=== PATIENT | male | born 1950 | race Caucasian/White ===

== ENCOUNTER → 2020-10-18 11:58 | Outpatient (CLI) | payer MEDICARE, SELFPAY ==
[2020-10-18 19:47] LABS: Add Manual Diff / Slide Review NO; Basophils Absolute Auto 0 /uL (0-100); Basophils Percent Auto 0.5 % (0-2); Eosinophils Absolute Auto 100 /uL (0-450); Eosinophils Percent Auto 2.1 % (2-4); Hematocrit 38.7 % (41-53); Hemoglobin 13.3 g/dL (13.5-17.5); Lymphocytes Absolute Auto 1100 /uL (1100-4500); Lymphocytes Percent Auto 21.2 % (25-40); Mean Corpuscular HGB Conc 34.5 % (30-36); Mean Corpuscular Volume 87.1 fL (80-100); Monocytes Absolute Auto 400 /uL (0-900); Monocytes Percent Auto 7.7 % (3-14); Neutrophils Absolute Auto 3400 /uL (1500-7000); Neutrophils Percent Auto 68.5 % (50-75); Platelet Count 131 X10^3/uL (150-400); Red Blood Cell Count 4.45 X10^6/uL (4.5-5.9); Red Cell Distribution Width 12.6 % (11.6-14.8)
[2020-10-18 19:54] LABS: Alanine Aminotransferase 21 IU/L (<50); Albumin 3.9 g/dL (3.5-5.0); Albumin Globulin Ratio 1.7 (1.0-2.8); Alkaline Phosphatase 48 U/L (38-126); Aspartate Aminotransferase 17 IU/L (17-59); Blood Urea Nitrogen 22 mg/dL (9-20); Calcium 9.2 mg/dL (8.4-10.2); Carbon Dioxide 29 mmol/L (22-32); Chloride 104 mmol/L (98-107); Cholesterol 92 mg/dL (140-199); Estimated Glomerular Filt Rate > 60.0 mL/min (>60); Globulin 2.3 g/dL (1.7-4.1); Glucose 114 mg/dL (80-110); HDL Cholesterol 36 mg/dL (40-60); HEMOLYSIS 16 (0-50); LDL Cholesterol Calculated 45 mg/dL (<100); Potassium 3.1 mmol/L (3.4-5.1); Sodium 140 mmol/L (137-145); Total Protein 6.2 g/dL (6.3-8.2); Triglycerides 53 mg/dL (35-150)
== END ==
PROVIDERS: PCP Family Medicine; Referring Provider Family Medicine; Visit Provider Family Medicine
DX: I10 Essential (primary) hypertension (principal); I51.7 Cardiomegaly; R01.1 Cardiac murmur, unspecified; R73.9 Hyperglycemia, unspecified
CPT/HCPCS: 80053; 80061; 83036; 85025

== ENCOUNTER → 2021-01-29 08:03 | Outpatient (CLI) | payer MEDICARE, SELFPAY ==
[2021-01-29 19:15] LABS: BUN Creatinine Ratio 26.3 (6-22); Blood Urea Nitrogen 21 mg/dL (9-20); Calcium 9.9 mg/dL (8.4-10.2); Carbon Dioxide 34 mmol/L (22-32); Chloride 103 mmol/L (98-107); Estimated Glomerular Filt Rate > 60.0 mL/min (>60); Glucose 120 mg/dL (80-110); HEMOLYSIS < 15 (0-50); Potassium 3.6 mmol/L (3.4-5.1); Sodium 142 mmol/L (137-145)
[2021-01-29 19:16] LABS: Hemoglobin A1C% w Est Avg Glu 6.3 % (4.0-6.0)
== END ==
PROVIDERS: PCP Family Medicine; Visit Provider Family Medicine
DX: E11.9 Type 2 diabetes mellitus without complications (principal); E87.6 Hypokalemia
CPT/HCPCS: 80048; 83036

== ENCOUNTER → 2021-04-29 10:35 | Outpatient (CLI) | payer MEDICARE, SELFPAY ==
[2021-04-29 19:43] LABS: Add Manual Diff / Slide Review NO; Basophils Absolute Auto 0 /uL (0-100); Basophils Percent Auto 0.4 % (0-2); Eosinophils Absolute Auto 200 /uL (0-450); Hematocrit 40.3 % (41-53); Hemoglobin 13.7 g/dL (13.5-17.5); Lymphocytes Absolute Auto 1000 /uL (1100-4500); Lymphocytes Percent Auto 21.3 % (25-40); Mean Corpuscular HGB Conc 34.1 % (30-36); Mean Corpuscular Hemoglobin 29.8 PG (26-34); Mean Corpuscular Volume 87.6 fL (80-100); Monocytes Absolute Auto 400 /uL (0-900); Monocytes Percent Auto 7.1 % (3-14); Neutrophils Absolute Auto 3300 /uL (1500-7000); Neutrophils Percent Auto 67.2 % (50-75); Platelet Count 145 X10^3/uL (150-400); Red Blood Cell Count 4.61 X10^6/uL (4.5-5.9); White Blood Cell Count 4.9 X10^3/uL (4.5-11.0)
[2021-04-29 19:48] LABS: Hemoglobin A1C% w Est Avg Glu 6.2 % (4.0-6.0)
[2021-04-29 19:51] LABS: Alanine Aminotransferase 20 IU/L (<50); Albumin 4.1 g/dL (3.5-5.0); Albumin Globulin Ratio 1.6 (1.0-2.8); Alkaline Phosphatase 46 U/L (38-126); Aspartate Aminotransferase 16 IU/L (17-59); BUN Creatinine Ratio 28.1 (6-22); Blood Urea Nitrogen 25 mg/dL (9-20); Calcium 9.7 mg/dL (8.4-10.2); Carbon Dioxide 35 mmol/L (22-32); Chloride 102 mmol/L (98-107); Cholesterol 108 mg/dL (140-199); Estimated Glomerular Filt Rate > 60.0 mL/min (>60); Globulin 2.6 g/dL (1.7-4.1); Glucose 116 mg/dL (80-110); HDL Cholesterol 39 mg/dL (40-60); HEMOLYSIS < 15 (0-50); LDL Cholesterol Calculated 55 mg/dL (<100); Potassium 3.7 mmol/L (3.4-5.1); Sodium 140 mmol/L (137-145); Total Protein 6.7 g/dL (6.3-8.2); Triglycerides 71 mg/dL (35-150)
== END ==
PROVIDERS: PCP Family Medicine; Visit Provider Physician Assistant
DX: E11.9 Type 2 diabetes mellitus without complications (principal); E78.5 Hyperlipidemia, unspecified; E87.6 Hypokalemia; I10 Essential (primary) hypertension
CPT/HCPCS: 80053; 80061; 83036; 85025

== ENCOUNTER → 2021-05-13 10:52 | Outpatient (CLI) | payer MEDICARE, SELFPAY ==
[2021-05-13 18:48] LABS: Prostate Specific Antigen Scrn 6.13 ng/mL (0.1-4.0)
== END ==
PROVIDERS: PCP Family Medicine; Visit Provider Physician Assistant
DX: Z12.5 Encounter for screening for malignant neoplasm of prostate (principal); R35.1 Nocturia
CPT/HCPCS: G0103

== ENCOUNTER → 2021-07-22 11:27 | Outpatient (CLI) | payer MEDICARE, SELFPAY ==
[2021-07-24 10:35] LABS: PSA Free % 24.1 % (.); PSA, Total 5.4 ng/mL (0.0-4.0)
== END ==
PROVIDERS: PCP Physician Assistant; Visit Provider Urology
DX: R97.20 Elevated prostate specific antigen [PSA] (principal)
CPT/HCPCS: 84153; 84154

== ENCOUNTER → 2021-08-27 14:43 | Outpatient (CLI) | payer MEDICARE, SELFPAY ==
--- NOTE | 2021-08-27 | DI.ECHO.S_ITS ---
[place] [facility]---------+ [facility] +---------+ : : [address] : [address] : : : : [id number] : : : : Phone: [phone]---------+ Echocardiogram Report + + :Name: SHAHAB JARAMILLO Study Date: 08/27/2021 Height: 70 in : :[facility] ReadingLocation: Weight: 190 lb : : Gender: Male BSA: 2.0 m2 : :: 1950 Age: 70 yrs BP: 176/75 mmHg: :Reason For Study: Aortic, Ascending Aneurysm : :Ordering Physician: SAMARA, : :CONCHITA Performed By: Noman Bess : :Referring: CONCHITA MEJIA : + + Interpretation Summary 1) Normal left ventricular size and systolic function (EF 55-60%). 2) Normal right ventricular size and function. 3) Moderate biatrial enlargement. 4) There is moderate aortic regurgitation. 5) The aortic root is severely dilated at 5.5cm. 6) Significant hypertension present during the study (BP 176/75mmHg). 7) Compared to the Echo done 10/20/2018, aortic roor enlargement has increased from 4.8cm to 5.5cm on this study. Procedure: A two-dimensional transthoracic echocardiogram with color flow and Doppler was performed. The study quality was technically adequate. Comparison is made with the echocardiogram of 10/20/2018. Left Ventricle: The left ventricle is normal in size. Left ventricular wall thickness is at the upper limits of normal. Left ventricular systolic function is normal. The ejection fraction is estimated to be 55-60%. There are no focal wall motion abnormalities. Diastolic function could not be accurately assessed due to unobtainable data. Right Ventricle: The right ventricle is normal in size and function. Atria: Both atria are moderately dilated. The interatrial septum grossly appears intact with no obvious evidence for an atrial septal defect. Mitral Valve: There is mild mitral annular calcification. There is mild mitral regurgitation. Aortic Valve: The aortic valve is normal in structure and function. There is no aortic valve stenosis. There is moderate aortic regurgitation. Tricuspid Valve: The tricuspid valve is normal in structure and function. There is trace tricuspid regurgitation. Pulmonary artery pressures cannot be estimated because of the lack of a measurable TR jet velocity. Pulmonic Valve: The pulmonic valve is normal in structure and function. There is no pulmonic valvular regurgitation. Great Vessels: The aortic root is severely dilated. The ascending aorta is moderately enlarged. The IVC is of normal diameter and collapses greater than 50% with a sniff. This suggests a low right atrial pressure of 3 mm Hg. Pericardium/ Pleura There is no pericardial effusion. There is no pleural effusion. MMode/2D Measurements & Calculations LVIDd: 5.5 cm LVOT diam: 2.2 cm LVIDs: 3.5 cm Ao root diam: 5.5 cm FS: 37.2 % asc Aorta Diam: 4.4 cm IVSd: 1.1 cm LVPWd: 1.1 cm LV patel. diameter/BSA (cm/m^2): 2.7 LV sys. diameter/BSA (cm/m^2): 1.7 LA A2 area: 25.3 cm2 RA long axis: 6.0 cm LA A4 area: 23.5 cm2 RA area: 24.0 cm2 LA length (vol): 6.1 cm RA vol: 82.0 ml LA vol: 82.8 ml RA : 40.1 ml/m2 LA vol index: 40.5 ml/m2 TAPSE: 3.1 cm Doppler Measurements & Calculations Ao V2 max: 200.4 cm/sec LVOT Max Janak: 181.8 cm/sec Ao V2 mean: 129.9 cm/sec LV V1 max P.2 mmHg Ao max P.1 mmHg LV V1 VTI: 41.8 cm Ao mean P.9 mmHg WOO(I,D): 3.5 cm2 Ao V2 VTI: 47.2 cm WOO(V,D): 3.6 cm2 sev ratio: 0.89 WOO indexed to BSA (cm^2/m^2): 1.7 AI P1/2t: 543.8 msec AI dec slope: 199.7 cm/sec2 MV E max janak: 84.7 cm/sec SV(LVOT): 165.6 ml MV A max janak: 85.9 cm/sec MV E/A: 0.99 Med Peak E' Janak: 5.5 cm/sec E/E' med: 15.4 Lat Peak E' Janak: 8.4 cm/sec E/E' lat: 10.1 E/e' average: 12.8 MV dec time: 0.22 sec Reading Physician:12:49 PM
== END ==
PROVIDERS: PCP Physician Assistant; Referring Provider Internal Medicine Cardiovascular Disease; Visit Provider Internal Medicine Cardiovascular Disease
DX: I08.0 Rheumatic disorders of both mitral and aortic valves (principal); I77.810 Thoracic aortic ectasia; I77.89 Other specified disorders of arteries and arterioles
CPT/HCPCS: 93306

== ENCOUNTER → 2021-09-03 13:02 | Outpatient (CLI) | payer MEDICARE, SELFPAY ==
[2021-09-05 05:14] LABS: PSA Free % 27.4 % (.); PSA, Total 5.8 ng/mL (0.0-4.0)
== END ==
PROVIDERS: PCP Physician Assistant; Visit Provider Urology
DX: R97.20 Elevated prostate specific antigen [PSA] (principal)
CPT/HCPCS: 84153; 84154

== ENCOUNTER → 2021-10-30 11:18 | Outpatient (CLI) | payer MEDICARE, SELFPAY ==
[2021-10-30 13:05] LABS: Add Manual Diff / Slide Review NO; Basophils Absolute Auto 0 /uL (0-100); Basophils Percent Auto 0.8 % (0-2); Eosinophils Absolute Auto 100 /uL (0-450); Eosinophils Percent Auto 2.4 % (2-4); Hematocrit 39.4 % (41-53); Hemoglobin 13.8 g/dL (13.5-17.5); Lymphocytes Absolute Auto 1100 /uL (1100-4500); Lymphocytes Percent Auto 19.6 % (25-40); Mean Corpuscular Hemoglobin 30.4 PG (26-34); Mean Corpuscular Volume 86.7 fL (80-100); Monocytes Absolute Auto 300 /uL (0-900); Monocytes Percent Auto 5.7 % (3-14); Neutrophils Absolute Auto 4000 /uL (1500-7000); Neutrophils Percent Auto 71.5 % (50-75); Platelet Count 126 X10^3/uL (150-400); Red Blood Cell Count 4.55 X10^6/uL (4.5-5.9); Red Cell Distribution Width 12.8 % (11.6-14.8); White Blood Cell Count 5.5 X10^3/uL (4.5-11.0)
[2021-10-30 13:34] LABS: BUN Creatinine Ratio 22.1 (6-22); Blood Urea Nitrogen 17 mg/dL (9-20); Calcium 9.6 mg/dL (8.4-10.2); Carbon Dioxide 30 mmol/L (22-32); Chloride 102 mmol/L (98-107); Cholesterol 105 mg/dL (140-199); Estimated Glomerular Filt Rate > 60 mL/min (>60); Glucose 113 mg/dL (80-110); HDL Cholesterol 46 mg/dL (40-60); HEMOLYSIS < 15 (0-50); LDL Cholesterol Calculated 47 mg/dL (<100); Potassium 3.8 mmol/L (3.4-5.1); Sodium 140 mmol/L (137-145); Triglycerides 62 mg/dL (35-150)
== END ==
PROVIDERS: PCP Physician Assistant; Referring Provider Internal Medicine Cardiovascular Disease; Visit Provider Internal Medicine Cardiovascular Disease
DX: E78.5 Hyperlipidemia, unspecified (principal); I10 Essential (primary) hypertension
CPT/HCPCS: 36415; 80048; 80061; 85025

== ENCOUNTER → 2021-11-19 13:59 | Outpatient (CLI) | payer MEDICARE, SELFPAY ==
[2021-11-19 20:26] LABS: Hemoglobin A1C% w Est Avg Glu 6.4 % (4.0-6.0)
[2021-11-19 20:37] LABS: NT-proBNP (BNP-Adult 18+) 162 pg/mL (<125)
== END ==
PROVIDERS: PCP Physician Assistant; Visit Provider Physician Assistant
DX: M79.89 Other specified soft tissue disorders (principal)
CPT/HCPCS: 83036; 83880

== ENCOUNTER → 2021-11-27 11:55 | Outpatient (CLI) | payer MEDICARE, SELFPAY ==
--- NOTE | 2021-11-27 11:57 | DI.US.S_ITS ---
PROCEDURE: US PERIPH VENOUS LOW EXTREM BI INDICATIONS: intermittent leg swelling TECHNIQUE: Real-time imaging, as well as color and pulse Doppler interrogation, were performed of the deep veins of both legs from the inguinal ligament to the popliteal fossa. COMPARISON: None. FINDINGS: Right: The common femoral, femoral and popliteal veins are normally compressible, and free of intraluminal thrombus. Color and pulse Doppler demonstrate normal phasic intravascular flow. There is normal augmentation response to distal compression maneuver. Left: The common femoral, femoral and popliteal veins are normally compressible, and free of intraluminal thrombus. Color and pulse Doppler demonstrate normal phasic intravascular flow. There is normal augmentation response to distal compression maneuver. The femoral veins are noted to be small in size, with slow flow. The calf veins are not well seen. IMPRESSION: Limited study demonstrating no findings of deep venous thrombosis. Dictated by: Julio Goel M.D. on 11/27/2021 at 13:22 Approved by: Julio Goel M.D. on 11/27/2021 at 13:22
--- NOTE | 2021-11-27 11:57 | DI.CT.S_ITS ---
PROCEDURE: CT ANGIO CHEST INDICATIONS: ASCENDING AORTIC DILALATION TECHNIQUE: After the administration of intravenous contrast, 2.5 mm thick sections acquired from the lung apices to the posterior lung bases. Maximum intensity projection (MIP) oblique sagittal reformats were then acquired parallel to the aortic arch. For radiation dose reduction, the following was used: automated exposure control. COMPARISON: [facility], ECHO DOPPLER COMPLETE, 08/27/2021, 15:02. FINDINGS: Image quality: Excellent. Aorta: The aortic root is aneurysmal measuring 5.3 cm AP x 4.9 cm transverse. Mild aneurysm of the ascending thoracic aorta measuring 4.1 cm AP x 4.3 cm transverse. Aorta tapers to normal caliber in the distal arch measuring 2.6 cm AP and 2.7 cm transverse. The great vessels are patent and demonstrate normal caliber. Mild atherosclerotic calcifications. There is a kink in the distal right subclavian artery with focal narrowing (series 4, image 23). Mediastinum: Heart size is normal. There is mild coronary artery calcification. No pericardial effusion. No mediastinal or hilar adenopathy by size criteria. Central pulmonary arteries are normal in size. Esophagus is normal in caliber. No hiatal hernia. Lungs and pleura: Small lung nodules are present. Nodule 1: 5 mm; right lower lobe abutting the major fissure; series 5, image 202; solid and noncalcified. Nodule 2: 3 mm; left lower lobe; calcified. No acute airspace opacities. No pleural effusions or pneumothorax. Central and peripheral airways are patent and normal in caliber. Bones and chest wall: No axillary adenopathy by size criteria. Thyroid gland is normal. No suspicious bony lesions. No vertebral body compression fractures. Severe shoulder joint degeneration is bilaterally. There are multiple intra-articular bodies in the right glenohumeral joint. Abdomen: Bilateral adrenal thickening. Right adrenal calcification is seen, likely sequelae of remote granulomatous infection or adrenal hemorrhage. IMPRESSION: 1. 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 2. 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 If there is clinical symptoms of right upper extremity ischemia, catheter angiogram may be considered. 3. A 5 mm right lower lobe nodule. Please see enclosed follow-up recommendation. 4. Please see the body of the report for other nonurgent incidental findings. Fleischner Society criteria for SOLID lung nodule followup. Nodule size (mm)Low-risk patientHigh-risk patient?4No follow-up neededFollow-up at 12 mo; if no change, no further follow-up>[id number] CT at 12 mo; if no change, no further follow-up needed.Initial follow-up CT at 6-12 mo, then 18-24 mo if no change. >6-8Initial follow-up CT at 6-12 mo, then 18-24 mo if no change. Initial follow-up CT at 3-6 mo, then 9-12 mo and 24 mo if no change. >8Follow-up CT at 3, 9, 24 mo. Or PET and/or biopsy.Same as for low-risk pts. Dictated by: Jh Owens M.D. on 11/27/2021 at 13:41 Approved by: Jh Owens M.D. on 11/27/2021 at 13:57
== END ==
PROVIDERS: PCP Physician Assistant; Referring Provider Internal Medicine Cardiovascular Disease; Visit Provider Internal Medicine Cardiovascular Disease
DX: I71.2 Thoracic aortic aneurysm, without rupture (principal); M79.89 Other specified soft tissue disorders; R91.8 Other nonspecific abnormal finding of lung field
CPT/HCPCS: 71275; 93970; Q9967

== ENCOUNTER → 2022-03-17 10:21 | Outpatient (CLI) | payer MEDICARE, SELFPAY ==
[2022-03-17 20:07] LABS: Prostate Specific Antigen 5.08 ng/mL (0.10-4.00)
== END ==
PROVIDERS: PCP Physician Assistant; Visit Provider Urology
DX: R97.20 Elevated prostate specific antigen [PSA] (principal)
CPT/HCPCS: 84153

== ENCOUNTER → 2022-09-29 13:03 | Outpatient (CLI) | payer MEDICARE, SELFPAY ==
[2022-09-29 20:15] LABS: Prostate Specific Antigen 5.36 ng/mL (0.10-4.00)
== END ==
PROVIDERS: PCP Physician Assistant; Visit Provider Urology
DX: R97.20 Elevated prostate specific antigen [PSA] (principal)
CPT/HCPCS: 84153

== ENCOUNTER → 2022-10-24 12:21 | Outpatient (CLI) | payer MEDICARE, SELFPAY ==
--- NOTE | 2022-10-24 | DI.ECHO.S_ITS ---
[place] +---------+ [facility] +---------+ : : [address] : [address] : : : : [id number] : : : : Phone: [phone]---------+ Echocardiogram Report + + :Name: SHAHAB JARAMILLO Study Date: 10/24/2022 Height: 70 in : :[facility] ReadingLocation: Weight: 185 lb : : Gender: Male BSA: 2.0 m2 : :: 1950 Age: 71 yrs BP: 159/64 mmHg: :Reason For Study: THORACIC AORTIC ECTASIA : :Ordering Physician: SAMARA, : :CONCHITA Performed By: Martha Hunter : :Referring: CONCHITA MEJIA : + + Interpretation Summary 1) Normal left ventricular size, wall motion, and systolic function (EF 60- 65%). 2) The right ventricle is mildly dilated. The right ventricular systolic function is normal. 3) There is moderate aortic regurgitation. 4) The aortic root is severely dilated at 5.4cm. 5) Compared to the Echo done 08/27/2021, no significant change. Procedure: A two-dimensional transthoracic echocardiogram with color flow and Doppler was performed. The study quality was technically adequate. Comparison is made with the echocardiogram of 08/27/2021. The patient was in sinus rhythm with heart rates between 55-67 bpm during the exam. Left Ventricle: The left ventricle is normal in size and wall thickness. The ejection fraction is estimated to be 60-65%. Left ventricular systolic function appears normal without focal wall motion abnormalities. Diastolic parameters suggest a relaxation abnormality of the left ventricle, consistent with probable normal filling pressures. Right Ventricle: The right ventricle is mildly dilated. The right ventricular systolic function is normal. Atria: The left atrium is moderately dilated. Right atrial size is normal. There is no Doppler evidence for an interatrial shunt. Mitral Valve: The mitral valve leaflets appear mildly thickened, but open well. There is mild mitral annular calcification. There is mild mitral regurgitation. Aortic Valve: The aortic valve is trileaflet. The peak aortic velocity is 2.3 m/sec. The aortic valve mean gradient is 11 mmHg. The calculated aortic valve area is 1.8 cm2. There is moderate aortic regurgitation. Tricuspid Valve: The tricuspid valve is normal in structure and function. There is trace tricuspid regurgitation. The right ventricular systolic pressure is estimated to be at least 28 mmHg based on an estimated right atrial pressure of 3 mm Hg. Pulmonic Valve: The pulmonic valve leaflets are thin and pliable; valve motion is normal. There is trace pulmonic regurgitation. Great Vessels: The aortic root is severely dilated. The ascending aorta is moderately enlarged. The IVC is of normal diameter and collapses greater than 50% with a sniff. This suggests a low right atrial pressure of 3 mm Hg. Pericardium/ Pleura There is no pericardial effusion. There is no pleural effusion. MMode/2D Measurements & Calculations LVIDd: 5.1 cm LVOT diam: 2.1 cm LVIDs: 3.2 cm Ao root diam: 5.4 cm FS: 36.9 % asc Aorta Diam: 4.3 cm EPSS: 1.1 cm IVSd: 0.97 cm LVPWd: 1.0 cm LV patel. diameter/BSA (cm/m^2): 2.5 LV sys. diameter/BSA (cm/m^2): 1.6 LA A2 area: 22.1 cm2 RA long axis: 5.7 cm LA A4 area: 20.9 cm2 RA area: 20.6 cm2 LA length (vol): 5.4 cm RA vol: 62.9 ml LA vol: 72.5 ml RA : 31.2 ml/m2 LA vol index: 35.9 ml/m2 IVC diam: 1.6 cm RVD1 (basal): 4.6 cm RVD2 (mid): 3.0 cm TAPSE: 2.9 cm Doppler Measurements & Calculations Ao V2 max: 229.4 cm/sec LVOT Max Janak: 124.0 cm/sec Ao V2 mean: 152.8 cm/sec LV V1 max P.2 mmHg Ao max P.4 mmHg LV V1 VTI: 28.4 cm Ao mean P.0 mmHg WOO(I,D): 2.0 cm2 Ao V2 VTI: 46.5 cm WOO(V,D): 1.8 cm2 sev ratio: 0.61 WOO indexed to BSA (cm^2/m^2): 1.0 AI P1/2t: 664.7 msec AI dec slope: 151.0 cm/sec2 MV E max janak: 82.2 cm/sec TR max janak: 251.1 cm/sec MV A max janak: 66.4 cm/sec TR max P.2 mmHg MV E/A: 1.2 PA V2 max: 138.2 cm/sec Med Peak E' Janak: 5.7 cm/sec PA V2 mean: 98.3 cm/sec E/E' med: 14.4 PA mean P.3 mmHg Lat Peak E' Janak: 8.9 cm/sec PA pr(Accel): 17.3 mmHg E/E' lat: 9.3 E/e' average: 11.8 MV dec time: 0.25 sec MVA(VTI): 2.4 cm2 MV V2 mean: 59.8 cm/sec SV(LVOT): 94.1 ml MV mean P.6 mmHg MV V2 VTI: 39.0 cm Reading Physician:01:10 PM
--- NOTE | 2022-10-24 | DI.CT.S_ITS ---
PROCEDURE: CT ANGIO CHEST INDICATIONS: Thoracic aortic ectasia TECHNIQUE: After the administration of intravenous contrast, 2.5 mm thick sections acquired from the lung apices to the posterior lung bases. Maximum intensity projection (MIP) oblique sagittal reformats were then acquired parallel to the aortic arch. For radiation dose reduction, the following was used: automated exposure control. COMPARISON: [facility], CT, CT ANGIO CHEST, 11/27/2021, 12:03. FINDINGS: Image quality: Excellent. Aorta: Ectasia of the ascending aorta at the annulus is redemonstrated and measures approximately 6.0 cm in the oblique axial diameter. This measured approximately 5.9 cm on the comparison CT dated November 27, 2021. The more superior portions of the ascending aorta demonstrate normal course and caliber. The descending thoracic aorta demonstrates normal course, caliber and wall thickness. No intramural hematoma is. Limited visualization of the abdominal aorta demonstrates no aneurysmal dilatation and mild atheromatous calcifications. The visualized portions of the renal arteries, SMA, and celiac axis appear patent. Mediastinum: No hematomas. Heart size is normal. No pericardial effusion. No mediastinal or hilar adenopathy by size criteria. Central pulmonary arteries are normal in size. Esophagus is normal in caliber. No hiatal hernia. Lungs and pleura: No acute airspace opacities. No pleural effusions or pneumothorax. Central and peripheral airways are patent and normal in caliber. Bones and chest wall: No axillary adenopathy by size criteria. Thyroid gland is unremarkable . No suspicious bony lesions. No vertebral body compression fractures. Abdomen: Visualized upper abdominal solid organs and bowel loops appear normal. IMPRESSION: 1. 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 Continued annual surveillance recommended. Dictated by: Heather Mak M.D. on 10/24/2022 at 16:05 Approved by: Heather Mak M.D. on 10/24/2022 at 16:12
[2022-10-24 13:41] LABS: Estimated Glomerular Filt Rate > 60 mL/min (>60)
== END ==
PROVIDERS: Radiology Diagnostic Radiology; PCP Physician Assistant; Referring Provider Internal Medicine Cardiovascular Disease; Visit Provider Internal Medicine Cardiovascular Disease
DX: I08.0 Rheumatic disorders of both mitral and aortic valves (principal); I77.89 Other specified disorders of arteries and arterioles; I77.810 Thoracic aortic ectasia; L57.0 Actinic keratosis
CPT/HCPCS: 36415; 71275; 82565; 93306; Q9967

== ENCOUNTER → 2022-11-11 11:28 | Outpatient (CLI) | payer MEDICARE, SELFPAY ==
--- NOTE | 2022-11-11 11:30 | DI.US.S_ITS ---
PROCEDURE: US PERIPH VENOUS LOW EXTREM LT INDICATIONS: EDEMA TECHNIQUE: Real-time imaging, as well as color and pulse Doppler interrogation, were performed of the lower extremity deep veins from the inguinal ligament to the popliteal fossa. COMPARISON: 11/27/2021. FINDINGS: The common femoral, femoral and popliteal veins are normally compressible, and free of intraluminal thrombus. Color and pulse Doppler demonstrate normal phasic intraluminal flow. There is normal augmentation response to distal compression maneuver. IMPRESSION: Negative for deep venous thrombosis. Dictated by: Julio Goel M.D. on 11/11/2022 at 11:59 Approved by: Julio Goel M.D. on 11/11/2022 at 11:59
[2022-11-11 12:54] LABS: Add Manual Diff / Slide Review NO; Basophils Absolute Auto 0 /uL (0-100); Basophils Percent Auto 0.7 % (0-2); Eosinophils Absolute Auto 100 /uL (0-450); Eosinophils Percent Auto 2.3 % (2-4); Hematocrit 40.6 % (41-53); Hemoglobin 13.8 g/dL (13.5-17.5); Lymphocytes Absolute Auto 900 /uL (1100-4500); Lymphocytes Percent Auto 15.1 % (25-40); Mean Corpuscular Hemoglobin 29.8 PG (26-34); Mean Corpuscular Volume 87.7 fL (80-100); Monocytes Absolute Auto 400 /uL (0-900); Monocytes Percent Auto 6.4 % (3-14); Neutrophils Absolute Auto 4400 /uL (1500-7000); Neutrophils Percent Auto 75.5 % (50-75); Platelet Count 130 X10^3/uL (150-400); Red Blood Cell Count 4.63 X10^6/uL (4.5-5.9); Red Cell Distribution Width 13.7 % (11.6-14.8); White Blood Cell Count 5.9 X10^3/uL (4.5-11.0)
[2022-11-11 13:28] LABS: HEMOLYSIS < 15 (0-50); NT-proBNP (BNP-Adult 18+) 266 pg/mL (<125)
[2022-11-11 13:31] LABS: Alanine Aminotransferase 25 IU/L (<50); Albumin 4.5 g/dL (3.5-5.0); Albumin Globulin Ratio 1.9 (1.0-2.8); Alkaline Phosphatase 47 U/L (38-126); Aspartate Aminotransferase 17 IU/L (17-59); Bilirubin Total 0.8 mg/dL (0.2-1.3); Blood Urea Nitrogen 15 mg/dL (9-20); Calcium 9.7 mg/dL (8.4-10.2); Carbon Dioxide 30 mmol/L (22-32); Chloride 102 mmol/L (98-107); Estimated Glomerular Filt Rate > 60 mL/min (>60); Globulin 2.4 g/dL (1.7-4.1); Glucose 82 mg/dL (80-110); Potassium 3.7 mmol/L (3.4-5.1); Sodium 140 mmol/L (137-145); Total Protein 6.9 g/dL (6.3-8.2)
== END ==
PROVIDERS: PCP Physician Assistant; Referring Provider Physician Assistant; Visit Provider Physician Assistant
DX: M79.89 Other specified soft tissue disorders (principal); I10 Essential (primary) hypertension
CPT/HCPCS: 36415; 80053; 83880; 85025; 93971

== ENCOUNTER → 2022-12-31 13:19 | Outpatient (CLI) | payer MEDICARE, SELFPAY ==
[2022-12-31 19:18] LABS: Add Manual Diff / Slide Review NO; Basophils Absolute Auto 0 /uL (0-100); Basophils Percent Auto 0.8 % (0-2); Eosinophils Absolute Auto 100 /uL (0-450); Eosinophils Percent Auto 1.7 % (2-4); Hematocrit 36.3 % (41-53); Hemoglobin 12.5 g/dL (13.5-17.5); Lymphocytes Absolute Auto 1000 /uL (1100-4500); Lymphocytes Percent Auto 15.1 % (25-40); Mean Corpuscular HGB Conc 34.5 % (30-36); Mean Corpuscular Hemoglobin 30.3 PG (26-34); Monocytes Absolute Auto 600 /uL (0-900); Monocytes Percent Auto 8.7 % (3-14); Neutrophils Absolute Auto 4700 /uL (1500-7000); Neutrophils Percent Auto 73.7 % (50-75); Platelet Count 138 X10^3/uL (150-400); Red Blood Cell Count 4.12 X10^6/uL (4.5-5.9); Red Cell Distribution Width 13.5 % (11.6-14.8); White Blood Cell Count 6.4 X10^3/uL (4.5-11.0)
== END ==
PROVIDERS: PCP Physician Assistant; Visit Provider Physician Assistant
DX: D69.6 Thrombocytopenia, unspecified (principal)
CPT/HCPCS: 85025

== ENCOUNTER → 2023-01-14 10:46 | Outpatient (CLI) | payer MEDICARE, SELFPAY ==
[2023-01-14 20:17] LABS: Add Manual Diff / Slide Review NO; Basophils Absolute Auto 0 /uL (0-100); Eosinophils Absolute Auto 100 /uL (0-450); Eosinophils Percent Auto 3.1 % (2-4); Hematocrit 35.5 % (41-53); Hemoglobin 12.3 g/dL (13.5-17.5); Lymphocytes Absolute Auto 1000 /uL (1100-4500); Lymphocytes Percent Auto 21.6 % (25-40); Mean Corpuscular HGB Conc 34.6 % (30-36); Mean Corpuscular Volume 86.7 fL (80-100); Monocytes Absolute Auto 400 /uL (0-900); Monocytes Percent Auto 8.3 % (3-14); Neutrophils Absolute Auto 2900 /uL (1500-7000); Platelet Count 148 X10^3/uL (150-400); Red Blood Cell Count 4.09 X10^6/uL (4.5-5.9); Red Cell Distribution Width 13.4 % (11.6-14.8); White Blood Cell Count 4.4 X10^3/uL (4.5-11.0)
[2023-01-14 20:47] LABS: Alanine Aminotransferase 25 IU/L (<50); Albumin Globulin Ratio 1.6 (1.0-2.8); Alkaline Phosphatase 45 U/L (38-126); Aspartate Aminotransferase 17 IU/L (17-59); BUN Creatinine Ratio 27.4 (6-22); Bilirubin Total 0.6 mg/dL (0.2-1.3); Blood Urea Nitrogen 23 mg/dL (9-20); Calcium 9.4 mg/dL (8.4-10.2); Carbon Dioxide 26 mmol/L (22-32); Chloride 101 mmol/L (98-107); Estimated Glomerular Filt Rate > 60 mL/min (>60); Globulin 2.5 g/dL (1.7-4.1); Glucose 104 mg/dL (80-110); HEMOLYSIS < 15 (0-50); Potassium 3.5 mmol/L (3.4-5.1); Sodium 138 mmol/L (137-145); Total Protein 6.5 g/dL (6.3-8.2)
== END ==
PROVIDERS: PCP Physician Assistant; Visit Provider Physician Assistant
DX: D64.9 Anemia, unspecified (principal); Z79.899 Other long term (current) drug therapy; E87.6 Hypokalemia
CPT/HCPCS: 80053; 83735; 85025

== ENCOUNTER → 2023-03-19 10:35 | Outpatient (CLI) | payer MEDICARE, SELFPAY ==
[2023-03-19 11:31] LABS: BUN Creatinine Ratio 35.5 (6-22); Blood Urea Nitrogen 22 mg/dL (9-20); Calcium 9.8 mg/dL (8.4-10.2); Carbon Dioxide 32 mmol/L (22-32); Chloride 103 mmol/L (98-107); Estimated Glomerular Filt Rate > 60 mL/min (>60); Glucose 124 mg/dL (80-110); HEMOLYSIS < 15 (0-50); Potassium 4.1 mmol/L (3.4-5.1); Sodium 138 mmol/L (137-145)
== END ==
PROVIDERS: PCP Physician Assistant; Referring Provider Nurse Practitioner Acute Care; Visit Provider Nurse Practitioner Acute Care
DX: I10 Essential (primary) hypertension (principal)
CPT/HCPCS: 36415; 80048

== ENCOUNTER → 2023-03-24 11:30 | Outpatient (CLI) | payer MEDICARE, SELFPAY ==
[2023-03-27 09:20] LABS: PSA, Total 4.8 ng/mL (0.0-4.0)
== END ==
PROVIDERS: PCP Physician Assistant; Visit Provider Urology
DX: R97.20 Elevated prostate specific antigen [PSA] (principal)
CPT/HCPCS: 84153; 84154

== ENCOUNTER → 2023-04-06 11:02 | Outpatient (CLI) | payer MEDICARE, SELFPAY ==
[2023-04-06 19:49] LABS: HEMOLYSIS < 15 (0-50); Potassium 3.8 mmol/L (3.4-5.1)
== END ==
PROVIDERS: PCP Physician Assistant; Visit Provider Physician Assistant
DX: Z79.899 Other long term (current) drug therapy (principal)
CPT/HCPCS: 84132

== ENCOUNTER → 2023-04-16 14:21 | Outpatient (CLI) | payer MEDICARE, SELFPAY ==
[2023-04-16 19:03] LABS: BUN Creatinine Ratio 30.7 (6-22); Blood Urea Nitrogen 23 mg/dL (9-20); Calcium 9.3 mg/dL (8.4-10.2); Carbon Dioxide 30 mmol/L (22-32); Chloride 100 mmol/L (98-107); Estimated Glomerular Filt Rate > 60 mL/min (>60); Glucose 82 mg/dL (80-110); HEMOLYSIS < 15 (0-50); Magnesium 1.7 mg/dL (1.6-2.3); Potassium 3.7 mmol/L (3.4-5.1); Sodium 138 mmol/L (137-145)
== END ==
PROVIDERS: PCP Physician Assistant; Visit Provider Nurse Practitioner Acute Care
DX: I47.29 Other ventricular tachycardia (principal)
CPT/HCPCS: 80048; 83735

== ENCOUNTER → 2023-06-01 08:46 | Outpatient (CLI) | payer OTHER, SELFPAY ==
[2023-06-01 18:44] LABS: Add Manual Diff / Slide Review NO; Basophils Absolute Auto 0 /uL (0-100); Basophils Percent Auto 0.7 % (0-2); Eosinophils Absolute Auto 100 /uL (0-450); Eosinophils Percent Auto 2.6 % (2-4); Hematocrit 35.1 % (41-53); Hemoglobin 11.7 g/dL (13.5-17.5); Lymphocytes Absolute Auto 700 /uL (1100-4500); Lymphocytes Percent Auto 13.3 % (25-40); Mean Corpuscular HGB Conc 33.4 % (30-36); Mean Corpuscular Hemoglobin 27.1 PG (26-34); Mean Corpuscular Volume 81.3 fL (80-100); Monocytes Absolute Auto 300 /uL (0-900); Monocytes Percent Auto 6.3 % (3-14); Neutrophils Absolute Auto 4000 /uL (1500-7000); Neutrophils Percent Auto 77.1 % (50-75); Platelet Count 113 X10^3/uL (150-400); Red Blood Cell Count 4.31 X10^6/uL (4.5-5.9); White Blood Cell Count 5.1 X10^3/uL (4.5-11.0)
[2023-06-01 19:01] LABS: Alanine Aminotransferase 26 IU/L (<50); Albumin 4.3 g/dL (3.5-5.0); Albumin Globulin Ratio 1.5 (1.0-2.8); Alkaline Phosphatase 54 U/L (38-126); Aspartate Aminotransferase 17 IU/L (17-59); BUN Creatinine Ratio 34.8 (6-22); Bilirubin Total 0.8 mg/dL (0.2-1.3); Blood Urea Nitrogen 24 mg/dL (9-20); Calcium 9.6 mg/dL (8.4-10.2); Carbon Dioxide 24 mmol/L (22-32); Chloride 104 mmol/L (98-107); Cholesterol 99 mg/dL (140-199); Estimated Glomerular Filt Rate > 60 mL/min (>60); Globulin 2.9 g/dL (1.7-4.1); Glucose 126 mg/dL (80-110); HDL Cholesterol 51 mg/dL (40-60); HEMOLYSIS < 15 (0-50); LDL Cholesterol Calculated 39 mg/dL (<100); Potassium 3.6 mmol/L (3.4-5.1); Sodium 140 mmol/L (137-145); Total Protein 7.2 g/dL (6.3-8.2); Triglycerides 45 mg/dL (35-150)
[2023-06-01 19:42] LABS: Creatinine Urine Random 8.2 mg/dL
[2023-06-01 19:47] LABS: Microalbumin Urine Random < 0.6 mg/dL (0-1.6)
[2023-06-03 06:28] LABS: Labcorp Hemoglobin (Hb) A1c 6.5 % (4.8-5.6)
== END ==
PROVIDERS: PCP Physician Assistant; Visit Provider Physician Assistant
DX: R73.03 Prediabetes (principal); I10 Essential (primary) hypertension; E78.5 Hyperlipidemia, unspecified; Z79.899 Other long term (current) drug therapy; R35.1 Nocturia; D64.9 Anemia, unspecified
CPT/HCPCS: 80053; 80061; 82043; 82570; 83036; 85025

== ENCOUNTER → 2023-07-07 12:58 | Outpatient (CLI) | payer MEDICARE, SELFPAY ==
[2023-07-07 19:09] LABS: HEMOLYSIS < 15 (0-50); Iron 86 ug/dL (49-181)
[2023-07-07 19:20] LABS: Percent Iron Saturation 23 % (20-50); Total Iron Binding Capacity 377 ug/dL (261-462); Transferrin 295 mg/dL (206-381)
[2023-07-07 19:21] LABS: Add Manual Diff / Slide Review NO; Basophils Absolute Auto 0 /uL (0-100); Basophils Percent Auto 0.9 % (0-2); Eosinophils Absolute Auto 200 /uL (0-450); Eosinophils Percent Auto 3.9 % (2-4); Hematocrit 34.7 % (41-53); Hemoglobin 11.6 g/dL (13.5-17.5); Lymphocytes Absolute Auto 800 /uL (1100-4500); Mean Corpuscular HGB Conc 33.5 % (30-36); Mean Corpuscular Hemoglobin 28.4 PG (26-34); Mean Corpuscular Volume 84.9 fL (80-100); Monocytes Absolute Auto 400 /uL (0-900); Monocytes Percent Auto 8.3 % (3-14); Neutrophils Absolute Auto 3100 /uL (1500-7000); Neutrophils Percent Auto 68.9 % (50-75); Platelet Count 107 X10^3/uL (150-400); Red Blood Cell Count 4.09 X10^6/uL (4.5-5.9); Red Cell Distribution Width 16.1 % (11.6-14.8); White Blood Cell Count 4.5 X10^3/uL (4.5-11.0)
[2023-07-07 19:34] LABS: Hemoglobin A1C% w Est Avg Glu 5.8 % (4.0-6.0)
[2023-07-07 19:49] LABS: Ferritin 20 ng/mL (18-464)
[2023-07-07 20:20] LABS: Folate > 20.0 ng/mL (2.76-20.0); Vitamin B12 459 pg/mL (239-931)
== END ==
PROVIDERS: PCP Physician Assistant; Visit Provider Physician Assistant
DX: D64.9 Anemia, unspecified (principal); R73.9 Hyperglycemia, unspecified
CPT/HCPCS: 82607; 82728; 82746; 83036; 83540; 83550; 85025

== ENCOUNTER → 2023-09-21 14:21 | Outpatient (CLI) | payer MEDICARE, SELFPAY ==
[2023-09-21 20:22] LABS: Add Manual Diff / Slide Review NO; Basophils Absolute Auto 0 /uL (0-100); Basophils Percent Auto 0.6 % (0-2); Eosinophils Absolute Auto 100 /uL (0-450); Eosinophils Percent Auto 1.5 % (2-4); Hematocrit 35.3 % (41-53); Lymphocytes Absolute Auto 900 /uL (1100-4500); Lymphocytes Percent Auto 14.8 % (25-40); Mean Corpuscular HGB Conc 34.1 % (30-36); Mean Corpuscular Hemoglobin 29.6 PG (26-34); Mean Corpuscular Volume 86.9 fL (80-100); Monocytes Absolute Auto 500 /uL (0-900); Monocytes Percent Auto 7.5 % (3-14); Neutrophils Absolute Auto 4500 /uL (1500-7000); Neutrophils Percent Auto 75.6 % (50-75); Platelet Count 109 X10^3/uL (150-400); Red Blood Cell Count 4.07 X10^6/uL (4.5-5.9); Red Cell Distribution Width 14.4 % (11.6-14.8)
[2023-09-21 20:24] LABS: Blood Urea Nitrogen 21 mg/dL (9-20); Calcium 9.2 mg/dL (8.4-10.2); Carbon Dioxide 28 mmol/L (22-32); Chloride 105 mmol/L (98-107); Estimated Glomerular Filt Rate > 60 mL/min (>60); Glucose 124 mg/dL (80-110); HEMOLYSIS < 15 (0-50); Sodium 137 mmol/L (137-145)
== END ==
PROVIDERS: Internal Medicine Cardiovascular Disease; PCP Physician Assistant; Visit Provider Physician Assistant
DX: I48.91 Unspecified atrial fibrillation (principal); D64.9 Anemia, unspecified; I10 Essential (primary) hypertension
CPT/HCPCS: 80048; 85025

== ENCOUNTER → 2023-09-24 08:30 | Outpatient (CLI) | payer MEDICARE, SELFPAY ==
[2023-09-29 07:22] LABS: Fecal Immunochemical Test Negative (Negative)
== END ==
PROVIDERS: PCP Physician Assistant; Visit Provider Physician Assistant
DX: D64.9 Anemia, unspecified (principal)
CPT/HCPCS: 82274

== ENCOUNTER → 2023-09-28 11:21 | Outpatient (CLI) | payer MEDICARE, SELFPAY ==
[2023-09-28 19:33] LABS: Hematocrit 38.1 % (41-53); Hemoglobin 12.7 g/dL (13.5-17.5); Mean Corpuscular HGB Conc 33.4 % (30-36); Mean Corpuscular Hemoglobin 29.1 PG (26-34); Mean Corpuscular Volume 87.1 fL (80-100); Platelet Count 113 X10^3/uL (150-400); Red Blood Cell Count 4.38 X10^6/uL (4.5-5.9); White Blood Cell Count 4.8 X10^3/uL (4.5-11.0)
[2023-09-28 19:37] LABS: HEMOLYSIS < 15 (0-50); Iron 104 ug/dL (49-181); Reticulocyte Count, Percent 0.3 % (0.9-2.6)
[2023-09-28 19:46] LABS: Lactate Dehydrogenase 218 U/L (120-246)
[2023-09-28 19:47] LABS: Percent Iron Saturation 27 % (20-50); Total Iron Binding Capacity 382 ug/dL (261-462); Transferrin 281 mg/dL (206-381)
[2023-09-28 20:19] LABS: Neutrophils Absolute Manual 3264 /uL (3000-5900); RBC Morphology Normal Morphology; Total Cells Counted 100
[2023-09-28 20:26] LABS: Ferritin 24 ng/mL (18-464)
[2023-09-30 04:10] LABS: Haptoglobin 89 mg/dL (34-355)
== END ==
PROVIDERS: PCP Physician Assistant; Visit Provider Family Medicine
DX: D64.9 Anemia, unspecified (principal)
CPT/HCPCS: 82728; 83010; 83540; 83550; 83615; 85025; 85045

== ENCOUNTER → 2023-10-28 10:52 | Outpatient (CLI) | payer MEDICARE, SELFPAY | PROVIDERS: PCP Physician Assistant; Visit Provider Urology | DX: R97.20 Elevated prostate specific antigen [PSA] (principal) | CPT/HCPCS: 84153; 84154 ==

== ENCOUNTER → 2024-01-29 08:40 | Outpatient (CLI) | payer MEDICARE, SELFPAY ==
--- NOTE | 2024-01-29 08:44 | DI.ECHO.S_ITS ---
[place] +---------+ [facility] : : [address] : [address] : : [id number] : : Phone: [phone] Echocardiogram Report + + :Name: SHAHAB JARAMILLO Study Date: 01/29/2024 Height: 70.5 in: :[facility] ReadingLocation: Weight: 180 lb : : Gender: Male BSA: 2.0 m2 : :: 1950 Age: 73 yrs BP: 204/96 mmHg: :Reason For Study: S/P AVR, AORTIC ROOT REPAIR : :Ordering Physician: SAMARA, : :CONCHITA Performed By: Martha Hunter : :Referring: CONCHITA MEJIA : + + Interpretation Summary field radio technician note: Patient denies any symptoms such has headache, dizziness, lightheadedness, or fatigue. Per Dr. Mejia, patient is okay to go home and to take remainder blood pressure medications and rest. Patient was instructed to come back to be seen if any symptoms develop. 1) Normal left ventricular size, wall motion, and systolic function (EF 60- 65%). 2) Mildly to moderately enlarged right ventricular size with normal function. 3) There is a bioprosthetic aortic valve that is well seated and opens well (mean gradient 15.1mmHg). There is trace intravalvular regurgitation through the prosthetic aortic valve. 4) Hypertension present during the study (BP 204/96mmHg). 5) Compared to the Echo done 10/24/2022, severely enlarged aorta has been replaced by a normal sized aorta. Procedure: A two-dimensional transthoracic echocardiogram with color flow and Doppler was performed. The study quality was technically adequate. Comparison is made with the echocardiogram of 10/24/2022. The patient was in sinus bradycardia with heart rates between 49-56 bpm during the exam. Left Ventricle: The left ventricle is normal in size. There is borderline concentric left ventricular hypertrophy. The ejection fraction is estimated to be 60-65%. Left ventricular systolic function appears normal without focal wall motion abnormalities. Right Ventricle: The right ventricle is mild to moderately dilated. The right ventricular systolic function is normal. Atria: The left atrium is mildly dilated. Right atrial size is normal. There is no Doppler evidence for an interatrial shunt. Mitral Valve: There is mild mitral annular calcification. The mitral valve leaflets appear mildly thickened, but open well. There is mild mitral regurgitation. Aortic Valve: There is a bioprosthetic aortic valve. There is trace intravalvular regurgitation through the prosthetic aortic valve. The peak aortic velocity is 2.6 m/sec. The aortic valve mean gradient is 15 mmHg. The calculated aortic valve area is 1.4 cm2. Tricuspid Valve: The tricuspid valve is normal in structure and function. There is mild tricuspid regurgitation. Pulmonary artery pressures cannot be estimated because of the lack of a measurable TR jet velocity. Pulmonic Valve: The pulmonic valve is not well seen, but is grossly normal. There is mild pulmonic regurgitation. Great Vessels: The aortic root is normal size. The dimensions of the ascending aorta are normal. The IVC is of normal diameter and collapses greater than 50% with a sniff. This suggests a low right atrial pressure of 3 mm Hg. Pericardium/ Pleura There is no pericardial effusion. There is no pleural effusion. MMode/2D Measurements & Calculations LVIDd: 5.3 cm LVOT diam: 2.0 cm LVIDs: 3.4 cm Ao root diam: 3.5 cm FS: 36.3 % asc Aorta Diam: 3.0 cm IVSd: 1.2 cm Ao Arch Diam (Prox Trans): 3.2 cm LVPWd: 1.0 cm LV patel. diameter/BSA (cm/m^2): 2.7 LV sys. diameter/BSA (cm/m^2): 1.7 LA A2 area: 21.4 cm2 RA long axis: 5.7 cm LA A4 area: 22.9 cm2 RA area: 20.2 cm2 LA length (vol): 5.4 cm RA vol: 60.7 ml LA vol: 76.7 ml RA : 30.2 ml/m2 LA vol index: 38.2 ml/m2 IVC diam: 2.0 cm RVD1 (basal): 5.1 cm RVD2 (mid): 3.3 cm TAPSE: 1.9 cm Doppler Measurements & Calculations Ao V2 max: 260.8 cm/sec LVOT Max Janak: 118.5 cm/sec Ao V2 mean: 182.5 cm/sec LV V1 max P.6 mmHg Ao max P.3 mmHg LV V1 VTI: 26.8 cm Ao mean P.1 mmHg WOO(I,D): 1.4 cm2 Ao V2 VTI: 59.6 cm WOO(V,D): 1.4 cm2 sev ratio: 0.45 WOO indexed to BSA (cm^2/m^2): 0.69 MV E max janak: 105.7 cm/sec PA V2 max: 153.8 cm/sec MV A max janak: 71.7 cm/sec PA V2 mean: 108.5 cm/sec MV E/A: 1.5 PA mean P.2 mmHg Med Peak E' Janak: 4.4 cm/sec PA pr(Accel): 31.0 mmHg E/E' med: 24.0 Lat Peak E' Janak: 8.7 cm/sec E/E' lat: 12.2 E/e' average: 18.1 MV dec time: 0.21 sec SV(LVOT): 82.7 ml Reading Physician:04:24 PM
[2024-01-29 09:59] LABS: Add Manual Diff / Slide Review NO; Basophils Absolute Auto 0 /uL (0-100); Basophils Percent Auto 0.6 % (0-2); Eosinophils Absolute Auto 100 /uL (0-450); Eosinophils Percent Auto 2.6 % (2-4); Hematocrit 37.7 % (41-53); Hemoglobin 12.7 g/dL (13.5-17.5); Lymphocytes Absolute Auto 900 /uL (1100-4500); Lymphocytes Percent Auto 16.5 % (25-40); Mean Corpuscular HGB Conc 33.8 % (30-36); Mean Corpuscular Hemoglobin 30.1 PG (26-34); Mean Corpuscular Volume 89.2 fL (80-100); Monocytes Absolute Auto 400 /uL (0-900); Neutrophils Absolute Auto 4000 /uL (1500-7000); Neutrophils Percent Auto 73.3 % (50-75); Platelet Count 115 X10^3/uL (150-400); Red Blood Cell Count 4.23 X10^6/uL (4.5-5.9); Red Cell Distribution Width 14.2 % (11.6-14.8); White Blood Cell Count 5.4 X10^3/uL (4.5-11.0)
[2024-01-29 10:36] LABS: BUN Creatinine Ratio 45.7 (6-22); Blood Urea Nitrogen 37 mg/dL (9-20); Calcium 9.9 mg/dL (8.4-10.2); Carbon Dioxide 27 mmol/L (22-32); Chloride 104 mmol/L (98-107); Estimated Glomerular Filt Rate > 60 mL/min (>60); Glucose 108 mg/dL (80-110); HEMOLYSIS < 15 (0-50); Potassium 4.3 mmol/L (3.4-5.1); Sodium 137 mmol/L (137-145)
== END ==
PROVIDERS: PCP Physician Assistant; Referring Provider Internal Medicine Cardiovascular Disease; Visit Provider Internal Medicine Cardiovascular Disease
DX: I08.1 Rheumatic disorders of both mitral and tricuspid valves (principal); I10 Essential (primary) hypertension; Z95.2 Presence of prosthetic heart valve; Z98.890 Other specified postprocedural states
CPT/HCPCS: 36415; 80048; 85025; 93306

== ENCOUNTER → 2024-04-27 10:27 | Outpatient (CLI) | payer OTHER, SELFPAY ==
[2024-04-27 19:50] LABS: Add Manual Diff / Slide Review NO; Basophils Absolute Auto 0 /uL (0-100); Basophils Percent Auto 0.5 % (0-2); Eosinophils Absolute Auto 100 /uL (0-450); Eosinophils Percent Auto 2.4 % (2-4); Hematocrit 36.3 % (41-53); Hemoglobin 12.3 g/dL (13.5-17.5); Lymphocytes Absolute Auto 600 /uL (1100-4500); Lymphocytes Percent Auto 11.6 % (25-40); Mean Corpuscular Hemoglobin 30.8 PG (26-34); Mean Corpuscular Volume 90.5 fL (80-100); Monocytes Absolute Auto 300 /uL (0-900); Monocytes Percent Auto 5.7 % (3-14); Neutrophils Absolute Auto 4500 /uL (1500-7000); Neutrophils Percent Auto 79.8 % (50-75); Platelet Count 107 X10^3/uL (150-400); Red Blood Cell Count 4.01 X10^6/uL (4.5-5.9); Red Cell Distribution Width 13.5 % (11.6-14.8); White Blood Cell Count 5.6 X10^3/uL (4.5-11.0)
[2024-04-27 19:56] LABS: HEMOLYSIS < 15 (0-50); Iron 95 ug/dL (49-181)
[2024-04-27 20:07] LABS: Percent Iron Saturation 28 % (20-50); Total Iron Binding Capacity 343 ug/dL (261-462); Transferrin 293 mg/dL (206-381)
[2024-04-27 20:33] LABS: Ferritin 29 ng/mL (18-464)
[2024-04-29 15:36] LABS: PSA Free % 28.1 % (.); PSA, Total 5.3 ng/mL (0.0-4.0)
== END ==
PROVIDERS: Urology; PCP Physician Assistant; Visit Provider Family Medicine
DX: D64.9 Anemia, unspecified (principal); R39.9 Unspecified symptoms and signs involving the genitourinary system; R33.9 Retention of urine, unspecified; N40.0 Benign prostatic hyperplasia without lower urinary tract symptoms; R97.20 Elevated prostate specific antigen [PSA]
CPT/HCPCS: 82728; 83540; 83550; 84153; 84154; 85025

== ENCOUNTER → 2024-06-17 09:08 | Outpatient (CLI) | payer OTHER, SELFPAY ==
[2024-06-17 18:43] LABS: Creatinine Urine Random 93.75 mg/dL
[2024-06-17 18:47] LABS: Microalbumin Urine Random 7.3 mg/dL (0-1.6)
== END ==
PROVIDERS: PCP Family Medicine; Visit Provider Family Medicine
DX: E11.9 Type 2 diabetes mellitus without complications (principal); E78.5 Hyperlipidemia, unspecified
CPT/HCPCS: 82043; 82570

== ENCOUNTER → 2024-07-04 09:07 | Outpatient (CLI) | payer OTHER, SELFPAY ==
[2024-07-04 09:55] LABS: Hematocrit 37.8 % (41-53); Hemoglobin 12.8 g/dL (13.5-17.5); Mean Corpuscular HGB Conc 33.8 % (30-36); Mean Corpuscular Hemoglobin 30.7 PG (26-34); Mean Corpuscular Volume 90.7 fL (80-100); Platelet Count 107 X10^3/uL (150-400); Red Blood Cell Count 4.17 X10^6/uL (4.5-5.9); Red Cell Distribution Width 13.2 % (11.6-14.8); White Blood Cell Count 5.7 X10^3/uL (4.5-11.0)
[2024-07-04 10:19] LABS: BUN Creatinine Ratio 31.6 (6-22); Blood Urea Nitrogen 25 mg/dL (9-20); Calcium 10.1 mg/dL (8.4-10.2); Carbon Dioxide 27 mmol/L (22-32); Chloride 103 mmol/L (98-107); Cholesterol 97 mg/dL (140-199); Estimated Glomerular Filt Rate > 60 mL/min (>60); Glucose 115 mg/dL (80-110); HDL Cholesterol 46 mg/dL (40-60); HEMOLYSIS < 15 (0-50); LDL Cholesterol Calculated 39 mg/dL (<100); Potassium 4.4 mmol/L (3.4-5.1); Sodium 139 mmol/L (137-145); Triglycerides 58 mg/dL (35-150)
== END ==
PROVIDERS: PCP Family Medicine; Referring Provider Internal Medicine Cardiovascular Disease; Visit Provider Internal Medicine Cardiovascular Disease
DX: I25.10 Atherosclerotic heart disease of native coronary artery without angina pectoris (principal)
CPT/HCPCS: 36415; 80048; 80061; 85027

== ENCOUNTER → 2024-07-15 10:29 | Outpatient (CLI) | payer OTHER, SELFPAY ==
[2024-07-15 12:35] LABS: Prostate Specific Antigen 4.52 ng/mL (0.10-4.00)
== END ==
PROVIDERS: PCP Family Medicine; Referring Provider Internal Medicine; Visit Provider Internal Medicine
DX: N40.0 Benign prostatic hyperplasia without lower urinary tract symptoms (principal)
CPT/HCPCS: 36415; 84153

== ENCOUNTER → 2024-10-26 10:28 | Outpatient (CLI) | payer OTHER, SELFPAY ==
[2024-10-26 19:28] LABS: Hematocrit 36.3 % (41-53); Hemoglobin 12.2 g/dL (13.5-17.5); Mean Corpuscular HGB Conc 33.6 % (30-36); Mean Corpuscular Hemoglobin 30.6 PG (26-34); Mean Corpuscular Volume 91.1 fL (80-100); Platelet Count 105 X10^3/uL (150-400)
[2024-10-26 19:41] LABS: HEMOLYSIS < 15 (0-50); Iron 100 ug/dL (49-181); Reticulocyte Count, Percent 0.5 % (0.9-2.6)
[2024-10-26 19:47] LABS: Alanine Aminotransferase 41 IU/L (<50); Albumin 4.2 g/dL (3.5-5.0); Albumin Globulin Ratio 1.7 (1.0-2.8); Alkaline Phosphatase 51 U/L (38-126); Blood Urea Nitrogen 33 mg/dL (9-20); Calcium 9.8 mg/dL (8.4-10.2); Carbon Dioxide 26 mmol/L (22-32); Chloride 106 mmol/L (98-107); Estimated Glomerular Filt Rate > 60 mL/min (>60); Globulin 2.5 g/dL (1.7-4.1); Glucose 122 mg/dL (70-99); HEMOLYSIS 16 (0-50); Potassium 4.4 mmol/L (3.4-5.1); Sodium 139 mmol/L (137-145); Total Protein 6.7 g/dL (6.3-8.2)
[2024-10-26 20:04] LABS: Percent Iron Saturation 28 % (20-50); Total Iron Binding Capacity 363 ug/dL (261-462); Transferrin 276 mg/dL (206-381)
[2024-10-26 20:19] LABS: Ferritin 41 ng/mL (18-464)
[2024-10-26 20:28] LABS: Band Neutrophils Percent 2.0 % (3-7); Eosinophils Percent Manual 2.0 % (2-4); Lymphocytes Percent Manual 26.0 % (25-45); Monocytes Percent Manual 10.0 % (2-11); Neutrophils Absolute Manual 3162 /uL (3000-5900); Segmented Neutrophils Percent 60.0 % (38-70); Total Cells Counted 100
[2024-10-26 20:30] LABS: Acanthocytes 1+
== END ==
PROVIDERS: Urology; PCP Family Medicine; Visit Provider Family Medicine
DX: D64.9 Anemia, unspecified (principal); D69.6 Thrombocytopenia, unspecified; I1A.0 Resistant hypertension; Z95.1 Presence of aortocoronary bypass graft; R97.20 Elevated prostate specific antigen [PSA]
CPT/HCPCS: 80053; 82728; 83540; 83550; 84153; 84154; 85025; 85045

== ENCOUNTER → 2025-01-17 11:01 | Outpatient (CLI) | payer OTHER, SELFPAY ==
--- NOTE | 2025-01-17 11:05 | DI.ECHO.S_ITS ---
[place] +---------+ Hospital : : [address] : : [place] [address] : : [id number] : : Phone: [phone] Echocardiogram Report + + :Name: SHAHAB JARAMILLO Study Date: 01/17/2025 Height: 70.5 in: :[facility] ReadingLocation: Weight: 160 lb : : Gender: Male BSA: 1.9 m2 : :: 1950 Age: 74 yrs BP: 177/90 mmHg: :Reason For Study: H/O AORTIC ROOT REPAIR : :Ordering Physician: SAMARA, : :CONCHITA Performed By: Martha Hunter : :Referring: CONCHITA MEJIA : + + Interpretation Summary 1) Normal left ventricular size, wall motion, and systolic function (EF 60- 65%). 2) Mildly enlarged right ventricular size with normal function. 3) There is a bioprosthetic aortic valve that is well seated and opens well (mean gradient 16mmHg). There is mild intravalvular regurgitation through the prosthetic aortic valve. 4) Hypertension present during the study (BP 177/90mmHg). 5) Compared to the Echo done 01/29/2024, no significant change. Procedure: A two-dimensional transthoracic echocardiogram with color flow and Doppler was performed. The study quality was technically adequate. Comparison is made with the echocardiogram of 01/29/2024. The patient was in sinus bradycardia with heart rates between 41-54 bpm during the exam. Left Ventricle: The left ventricle is normal in size and wall thickness. The ejection fraction is estimated to be 60-65%. Left ventricular systolic function appears normal without focal wall motion abnormalities. Grade II diastolic dysfunction with elevated left atrial pressure. Right Ventricle: The right ventricle is mildly dilated. The right ventricular systolic function is normal. Atria: The left atrium is moderately dilated. The right atrium is mildly dilated. There is no Doppler evidence for an interatrial shunt. Mitral Valve: The mitral valve leaflets appear mildly thickened. There is mild to moderate mitral annular calcification. There is mild mitral regurgitation. Aortic Valve: There is a bioprosthetic aortic valve. The peak aortic velocity is 2.6 m/sec. The aortic valve mean gradient is 16 mmHg. The calculated aortic valve area is 1.5 cm2. There is mild aortic regurgitation. Tricuspid Valve: The tricuspid valve leaflets are thin and pliable. There is mild to moderate tricuspid regurgitation. The right ventricular systolic pressure is estimated to be at least 34 mmHg based on an estimated right atrial pressure of 3 mm Hg. Pulmonic Valve: The pulmonic valve is not well seen, but is grossly normal. There is mild pulmonic regurgitation. Great Vessels: The aortic root is normal size. The dimensions of the ascending aorta are normal. The IVC is of normal diameter and collapses greater than 50% with a sniff. This suggests a low right atrial pressure of 3 mm Hg. Pericardium/ Pleura There is no pericardial effusion. There is no pleural effusion. MMode/2D Measurements & Calculations LVIDd: 5.6 cm LVOT diam: 2.0 cm LVIDs: 3.2 cm Ao root diam: 3.5 cm FS: 43.0 % asc Aorta Diam: 3.0 cm IVSd: 0.94 cm Ao Arch Diam (Prox Trans): 2.8 cm LVPWd: 0.86 cm LV patel. diameter/BSA (cm/m^2): 2.9 LV sys. diameter/BSA (cm/m^2): 1.7 LA A2 area: 23.2 cm2 RA long axis: 6.1 cm LA A4 area: 24.0 cm2 RA area: 22.2 cm2 LA length (vol): 5.6 cm RA vol: 69.2 ml LA vol: 84.3 ml RA : 36.3 ml/m2 LA vol index: 44.2 ml/m2 IVC diam: 1.9 cm RVD1 (basal): 5.3 cm RVD2 (mid): 3.9 cm TAPSE: 1.8 cm Doppler Measurements & Calculations Ao V2 max: 266.2 cm/sec LVOT Max Janak: 127.1 cm/sec Ao V2 mean: 181.5 cm/sec LV V1 max P.5 mmHg Ao max P.1 mmHg LV V1 VTI: 30.5 cm Ao mean P.2 mmHg WOO(I,D): 1.5 cm2 Ao V2 VTI: 65.9 cm WOO(V,D): 1.5 cm2 sev ratio: 0.46 WOO indexed to BSA (cm^2/m^2): 0.76 MV E max janak: 102.7 cm/sec TR max janak: 280.0 cm/sec MV A max janak: 94.5 cm/sec TR max P.4 mmHg MV E/A: 1.1 PA V2 max: 133.9 cm/sec Med Peak E' Janak: 5.8 cm/sec PA V2 mean: 87.7 cm/sec E/E' med: 17.8 PA mean P.5 mmHg Lat Peak E' Janak: 11.8 cm/sec PA pr(Accel): 40.5 mmHg E/E' lat: 8.7 E/e' average: 13.2 MV dec time: 0.22 sec SV(LVOT): 96.1 ml Reading Physician:04:09 PM
[2025-01-17 12:37] LABS: Hematocrit 34.4 % (41-53); Hemoglobin 11.9 g/dL (13.5-17.5); Mean Corpuscular HGB Conc 34.6 % (30-36); Mean Corpuscular Hemoglobin 30.5 PG (26-34); Mean Corpuscular Volume 88.2 fL (80-100); Platelet Count 113 X10^3/uL (150-400)
[2025-01-17 12:58] LABS: Blood Urea Nitrogen 24 mg/dL (9-20); Calcium 9.8 mg/dL (8.4-10.2); Carbon Dioxide 26 mmol/L (22-32); Chloride 103 mmol/L (98-107); Estimated Glomerular Filt Rate > 60 mL/min (>60); Glucose 97 mg/dL (70-99); HEMOLYSIS < 15 (0-50); Potassium 4.3 mmol/L (3.4-5.1); Sodium 138 mmol/L (137-145)
== END ==
LOC: ECHO 11:03
PROVIDERS: PCP Family Medicine; Referring Provider Family Medicine; Visit Provider Internal Medicine Cardiovascular Disease
DX: I08.3 Combined rheumatic disorders of mitral, aortic and tricuspid valves (principal); I25.10 Atherosclerotic heart disease of native coronary artery without angina pectoris; Z98.890 Other specified postprocedural states; Z95.2 Presence of prosthetic heart valve
CPT/HCPCS: 36415; 80048; 85027; 93306